=== PATIENT | male | born 1975 | race Caucasian/White ===

== ENCOUNTER 2016-12-26 14:53 | Emergency (ER) | payer OTHER ==
[~2016-12-26] VITALS: Ht 15.2 cm; Wt 82.0 kg
[2016-12-26 15:03] VITALS: BP 135/107; PULSE 106; RESP 16; TEMP 98.1; O2SAT 98
--- NOTE | 2016-12-26 15:40 | PD ---
HPI Chief Complaint: Injury Time Seen by Provider: 15:38 Travel History International Travel<30 days: No Contact w/Intl Traveler<30days: No Traveled to known affect area: No History of Present Illness HPI Patient is a 41-year-old male who presents emergency department evaluation of left fourth finger pain. Patient was playing flag football when his finger got stuck and another player's flag, subsequently causing an obvious deformity. Injury occurred approximately an hour and half ago. Patient denies any numbness or weakness. He rates his pain a 5 out of 10. He denies any other complaints at this time. [facility] Past Medical History Medical History: Denies Significant Hx Hx Anticoagulant Therapy: No Diminished Hearing: No Immunizations Current: Yes Tetanus Vaccination: < 5 Years Influenza Vaccination: No Past Surgical History Surgical History: No Previous Surgery Social History Alcohol Use: Yes (2 daily) Tobacco Use: Yes (vapor) Substance Use: No Allergies-Medications (Allergen,Severity, Reaction): Coded Allergies: No Known Allergies (Unverified , 12/26/16) Reported Meds & Prescriptions Reported Meds & Active Scripts Active Ibuprofen 800 Mg Tab 800 Mg PO Q6HR PRN 10 Days Review of Systems Except as stated in HPI: all other systems reviewed are Neg Musculoskeletal: Positive: Myalgias, Arthralgias, Pain, Other (deformity to left fourth finger) Physical Exam Narrative GENERAL: Well-nourished, well-developed patient. SKIN: Warm and dry. HEAD: Normocephalic. EYES: No scleral icterus. No injection or drainage. NECK: Supple, trachea midline. No JVD or lymphadenopathy. CARDIOVASCULAR: Regular rate and rhythm without murmurs, gallops, or rubs. RESPIRATORY: Breath sounds equal bilaterally. No accessory muscle use. GASTROINTESTINAL: Abdomen soft, non-tender, nondistended. MUSCULOSKELETAL: No cyanosis, edema noted to the left fourth finger from the MCP to PIP joint, brisk less than 3 second capillary refill, positive radial pulse. Obvious deformity noted to the left fourth finger BACK: Nontender without obvious deformity. No CVA tenderness. Data Data Last Documented VS Vital Signs Date Time Temp Pulse Resp B/P Pulse Ox O2 Delivery O2 Flow Rate FiO2 12/26/16 15:03 98.1 106 16 135/107 98 Orders Hand, Complete ([id number]) (12/26/16 ) Bupivacaine Pf 0.5% Inj (Marcaine Pf 0.5 (12/26/16 15:45) Finger ([id number]) (12/26/16 ) MDM Medical Decision Making Medical Screen Exam Complete: Yes Emergency Medical Condition: Yes Interpretation(s) Vital Signs Date Time Temp Pulse Resp B/P Pulse Ox O2 Delivery O2 Flow Rate FiO2 12/26/16 15:03 98.1 106 16 135/107 98 Differential Diagnosis Fracture versus dislocation versus contusion versus other Narrative Course Patient's 41-year-old male who presents emergency for evaluation of left fourth finger deformity. Initial imaging shows dislocation at the PIP joint. Bupivacaine was used to perform a digital block to the left fourth finger. Patient is neurovascularly intact. Finger was reduced, when he moved it dislocated again. It was reduced a second time and placed in a finger splint. Patient has full range of motion in the PIP joint and left fourth finger after reduction. Repeat imaging ordered. Repeated x-ray of the left fourth finger shows successful reduction. Patient remains neurovascularly intact. Patient was encouraged to follow-up with a hand surgeon, and primary doctor. He was advised to come back to emergency department for any new or worsening symptoms. He was encouraged to keep the splint on his finger until evaluated by a hand surgeon. Verbalized understanding of these instructions. Patient stable for discharge. Diagnosis Primary Impression: Dislocation, finger closed Qualified Code: S63.259A - Dislocation, finger closed, initial encounter Referrals: Celestine Bryant III, MD Hand Surgeon Patient Instructions: Finger Dislocation (ED), General Instructions Additional Instructions: Keep finger splint on until evaluated by a hand surgeon Return to emergency department for any new or worsening symptoms Take medications as directed Follow-up with primary doctor Med/Other Pt SpecificInfo: Prescription(s) given Scripts Ibuprofen 800 Mg [id number] Mg PO Q6HR PRN (PAIN) 10 Days Ref 0 Prov:Heena Hines 12/26/16 Disposition: 01 DISCHARGE HOME Condition: Stable Heena Hines Dec 26, 2016 15:40
[2016-12-26] MEDS ORDERED: BUPIVACAINE HCL PF 0.5% 10 ML VIAL INFIL ONE (15:45)
--- NOTE | 2016-12-26 16:14 | RADHPO ---
EXAM DATE/TIME: 12/26/2016 15:42 [facility] COMPARISON: No previous studies available for comparison. INDICATIONS : Left hand pain. Patient hurt hand playing flag football. MEDICAL HISTORY : None. SURGICAL HISTORY : None. ENCOUNTER: Initial ACUITY: 1 day PAIN SCORE: 10/10 LOCATION: Left hand, fourth digit FINDINGS: There is dislocation at the proximal interphalangeal joint of the fourth finger. No fracture seen on this exam. Remainder of left hand unremarkable. CONCLUSION: 1. Dislocation at proximal interphalangeal joint of left fourth finger. Song Zendejas MD on December 26, 2016 at 16:11 Board Certified Radiologist. This report was verified electronically.
[2016-12-26] MEDS ORDERED: IBUP800T23 PO (16:45)
[2016-12-26] MEDS ORDERED: TRAM50TA PO ×2 (17:01→17:02)
--- NOTE | 2016-12-26 17:26 | RADHPO ---
EXAM DATE/TIME: 12/26/2016 16:21 [facility] COMPARISON: No previous studies available for comparison. INDICATIONS : Post reduction of left fourth finger. MEDICAL HISTORY : None. SURGICAL HISTORY : None. ENCOUNTER: Subsequent ACUITY: 1 day PAIN SCORE: 2/10 LOCATION: Left hand, fourth digit FINDINGS: Examination of the fourth digit of the left hand demonstrates no evidence of fracture or dislocation. No radiopaque foreign bodies are seen. CONCLUSION: 1. Reduction of previous dislocation at the fourth finger. There is some overlying soft tissue swelli ng. No fracture identified. Song Zendejas MD on December 26, 2016 at 17:24 Board Certified Radiologist. This report was verified electronically.
== END 2016-12-26 17:15 | disposition home or self-care (01) ==
LOC: PHEFT 14:53
DX: S63.259A Unspecified dislocation of unspecified finger, initial encounter (principal); F17.200 Nicotine dependence, unspecified, uncomplicated; X58.XXXA Exposure to other specified factors, initial encounter; Y93.62 Activity, american flag or touch football; Y99.8 Other external cause status
CPT/HCPCS: 26770; 73130; 73140